=== PATIENT | male | born 1965 | race Caucasian/White ===

== ENCOUNTER 2019-06-09 11:54 | Observation (INO) ==
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
[2019-06-09] MEDS ORDERED: NS 1,000 ML IV ONE (12:06)
[2019-06-09 12:34] LABS: BASO# 0.01 X1000 (0.0-0.2); BASO% 0.2 % (0.0-0.8); EOS# 0.01 X1000 (0.0-0.7); EOS% 0.2 % (0.0-10.0); HEMATOCRIT 40.9 % (42.0-52.0); HEMOGLOBIN 14.3 g/dL (14.0-18.0); IMM GRAN# 0.02 X1000 (0.0-0.04); IMM GRAN% 0.4 % (0.0-0.5); LYMPH# 0.91 X1000 (1.2-3.4); LYMPH% 17.1 % (20.5-51.1); MCH 31.8 PG (27-31); MCV 90.9 FL (81-99); MONO% 7.5 % (1.7-9.3); MPV 8.6 FL (7.4-10.4); NEUT# 3.97 X1000 (1.4-6.5); NEUT% 74.6 % (42.2-75.2); PLT 208 X1000 (130-400); RDW 13.5 % (11.5-14.5); WBC 5.32 X1000 (4.8-10.8)
--- NOTE | 2019-06-09 12:54 | EKG Report ---
Test Performed on : 06/09/2019 12:36:30 PM Test Reason : syncope Blood Pressure : / mmHG Vent. Rate : 076 BPM Atrial Rate : 076 BPM P-R Int : 154 ms QRS Dur : 110 ms QT Int : 368 ms P-R-T Axes : 059 072 058 degrees QTc Int : 414 ms Normal sinus rhythm. Normal ECG No previous ECGs available Unconfirmed Result
[2019-06-09 13:02] LABS: ALBUMIN 4.3 g/dL (3.5-5.0); CALCIUM 8.6 mg/dL (8.8-10.2); CREATININE 1.6 mg/dL (0.7-1.2); POTASSIUM 4.1 mmol/L (3.5-5.1); TOTAL BILIRUBIN 0.22 mg/dL (0.20-1.00); TOTAL PROTEIN 6.4 g/dL (6.3-8.3)
[2019-06-09 13:20] LABS: CK INDEX 0.8 (0.0-2.5); CK-MB 2.61 ng/mL (0.0-5.0)
[2019-06-09 14:37] LABS: URINE SOURCE CLEAN CATCH
[2019-06-09 14:40] LABS: BILIRUBIN URINE NEGATIVE (NEGATIVE); BLOOD URINE SMALL (NEGATIVE); COLOR YELLOW; GLUCOSE URINE NEGATIVE (NEGATIVE); KETONE URINE TRACE mg/dL (NEGATIVE); LEUKOCYTES URINE NEGATIVE (NEGATIVE); NITRITE URINE NEGATIVE (NEGATIVE); PROTEIN URINE TRACE mg/dL (NEGATIVE); SP GRAVITY URINE 1.016; TURBIDITY URINE CLEAR (CLEAR); UROBILINOGEN URINE NORMAL (NORMAL)
[2019-06-09 14:42] LABS: UR EPITHELIAL CELLS <10 /HPF (<10); URINE BACTERIA NEGATIVE /HPF; URINE RBC <10 /HPF (<10)
[2019-06-09 14:52] LABS: UR AMPHETAMINES QUAL NONE DETECTED (NONE DETECT); UR BARBITUATES QUAL NONE DETECTED (NONE DETECT); UR BENZODIAZEPIN QUAL NONE DETECTED (NONE DETECT); UR CANNABINOIDS QUAL NONE DETECTED (NONE DETECT); UR COCAINE QUAL NONE DETECTED (NONE DETECT); UR METHADONE QUAL NONE DETECTED (NONE DETECT); UR OPIATES QUAL NONE DETECTED (NONE DETECT); UR OXYCODONE QUAL NONE DETECTED (NONE DETECT); UR PCP QUAL NONE DETECTED (NONE DETECT)
--- NOTE | 2019-06-09 14:56 | Diag Imaging Result Doc PS360 ---
EXAM: CT HEAD W/O CONTRAST 06/09/2019 HISTORY: syncope TECHNIQUE: This exam was performed using automated exposure control, adjustment of mA or kV according to patient size, and/or use of iterative reconstruction technique. COMMENT: There is no evidence of mass effect, bleed, or abnormal extra-axial fluid collection. The calvarium is intact. The visualized paranasal sinuses are clear. IMPRESSION: No evidence of acute disease. Electronically signed by John Del Toro 06/09/2019 2:53 PM
--- NOTE | 2019-06-09 15:01 | Diag Imaging Result Doc PS360 ---
EXAM: CHEST-1 VIEW 06/09/2019 HISTORY: syncope TECHNIQUE: AP upright at 1455 COMMENT: There is some questionable atelectasis in the costophrenic angle region of the right lower lobe which was not present on 02/22/2011. The heart size and pulmonary vascularity are within normal limits. IMPRESSION: Questionable right lower lobe atelectasis. Electronically signed by John Del Toro 06/09/2019 2:58 PM
[2019-06-09] MEDS ORDERED: TAMIFLU PO ONE (15:32)
[2019-06-09] MEDS ORDERED: ZOFRAN IV PRN (15:32)
[2019-06-09] MEDS ORDERED: TYLENOL PO PRN (15:32)
--- NOTE | 2019-06-09 16:13 | Diag Imaging Result Doc PS360 ---
EXAM: CT THORAX W/O CONTRAST 06/09/2019 HISTORY: r/o pna TECHNIQUE: This exam was performed using automated exposure control, adjustment of mA or kV according to patient size, and/or use of iterative reconstruction technique. COMMENT: There are no previous studies available for comparison. There is severe COPD. There are some calcifications and fibrotic appearing opacities in the right apex. There are patchy groundglass opacities in both upper lobes with some tree-in-bud opacity and mild peribronchial thickening. A similar appearance is present in the left lower lobe superior segment and in the right lower lobe around image 96. There is atelectasis or fibrosis in the costophrenic sulci particularly of the left lower lobe. There are some coronary calcifications. There are no abnormal fluid collections. There is some right paratracheal and aorticopulmonary window adenopathy with nodes approaching 15 mm. There is no evidence of acute disease in the visualized portion of the abdomen. The regional skeleton appears to be intact. IMPRESSION: Minimal pneumonitis and bronchiolitis. Electronically signed by John Del Toro 06/09/2019 4:10 PM
[2019-06-09] MEDS: SOLU-MEDROL IV SCH (17:33)
[2019-06-09] MEDS: NS 1,000 ML IV SCH (17:33)
[2019-06-09] MEDS: DUONEB (A & A) INH SCH ×2 (19:52→23:18)
[2019-06-09] MEDS: NICODERM PATCH TD SCH (20:56)
[2019-06-09 21:14] LABS: AGAP 14; BUN 31 mg/dL (8-22); CHLORIDE 91 mmol/L (98-107); COSMO 260; CREATININE 1.2 mg/dL (0.7-1.2); ESTIMATED GFR > 60; GLUCOSE 129 mg/dL (70-104); SODIUM 125 mmol/L (136-145); TCO2 20 mmol/L (25-35)
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
[2019-06-10] MEDS: DUONEB (A & A) INH SCH ×4 (01:09→11:20)
[2019-06-10] MEDS: SOLU-MEDROL IV SCH (05:30)
--- NOTE | 2019-06-10 07:22 | EKG Report ---
Test Performed on : 06/10/2019 07:08:26 AM Test Reason : chest pain Blood Pressure : / mmHG Vent. Rate : 091 BPM Atrial Rate : 091 BPM P-R Int : 140 ms QRS Dur : 108 ms QT Int : 360 ms P-R-T Axes : 072 080 071 degrees QTc Int : 442 ms Normal sinus rhythm. Normal ECG When compared with ECG of 09-JUN-2019 12:36, (Unconfirmed) No significant change was found Confirmed by Sarah Terry MD ([id number]) on 06/10/2019 4:15:21 PM
[2019-06-10] MEDS: NS 1,000 ML IV SCH (07:31)
[2019-06-10 08:00] LABS: HEMATOCRIT 37.6 % (42.0-52.0); LYMPH# 0.49 X1000 (1.2-3.4); LYMPH% 9.9 % (20.5-51.1); MCH 31.6 PG (27-31); MCHC 34.6 g/dL (33-37); MCV 91.3 FL (81-99); MONO# 0.32 X1000 (0.11-0.59); MONO% 6.5 % (1.7-9.3); MPV 8.9 FL (7.4-10.4); NEUT# 4.12 X1000 (1.4-6.5); NEUT% 83.6 % (42.2-75.2); PLT 209 X1000 (130-400); RBC 4.12 XMIL (4.7-6.1); RDW 13.5 % (11.5-14.5); WBC 4.93 X1000 (4.8-10.8)
[2019-06-10] MEDS: NICODERM PATCH TD SCH (08:18)
[2019-06-10 08:42] LABS: AGAP 14; ALB/GLOB RATIO 1.5; ALBUMIN 3.7 g/dL (3.5-5.0); ALKALINE PHOSPHATASE 58 U/L (32-122); BUN 19 mg/dL (8-22); CALCIUM 8.5 mg/dL (8.8-10.2); CHLORIDE 91 mmol/L (98-107); COSMO 259; CREATININE 0.9 mg/dL (0.7-1.2); ESTIMATED GFR > 60; GLUCOSE 123 mg/dL (70-104); GOT 38 U/L (10-34); GPT 35 U/L (10-44); MAGNESIUM 1.5 mg/dL (1.5-2.7); POTASSIUM 4.2 mmol/L (3.5-5.1); SODIUM 127 mmol/L (136-145); TCO2 22 mmol/L (25-35); TOTAL BILIRUBIN 0.17 mg/dL (0.20-1.00); TOTAL PROTEIN 6.2 g/dL (6.3-8.3)
[2019-06-10] MEDS ORDERED: TAMIFLU PO SCH (09:00)
[2019-06-10 11:45] VITALS: BP 123/51
[2019-06-10] MEDS ORDERED: LEVAQUIN PO SCH (13:30)
--- NOTE | 2019-06-12 13:12 | DISCHARGE SUMMARY ---
ADMISSION DATE: 06/09/2019 DISCHARGE DATE: 06/10/2019 DISCHARGE DIAGNOSES: 1. Influenza. 2. Dehydration. 3. Acute on chronic hyponatremia. 4. Chronic obstructive pulmonary disease with mild exacerbation. 5. Mild acute kidney injury. HOSPITAL COURSE: The patient presents initially with a 3-day history of fever, chills, myalgias, diarrhea, nausea, cough and dyspnea. On initial evaluation, no pneumonia was found, but patient was positive for influenza. He was mildly hypotensive with positive orthostatics, had a mildly elevated creatinine of 1.6 without clear baseline and with low sodium at 123. On discussion with the patient, he states that his sodium has been low for a long period of time, although he is not entirely certain how low it has been in the past. It was thought the patient likely had influenza and dehydration, so he was given Tamiflu and IV fluids. The patient improved rapidly. His acute kidney injury resolved. Creatinine was 0.9 on discharge. The patient's sodium improved slightly from 123 to 127, but never completely normalized. However, patient's hypotension resolved and the patient was no longer orthostatic. The patient was also noted to have some moderately decreased breath sounds throughout and mild wheezing on admission, was thought to have a mild chronic obstructive pulmonary disease exacerbation. Patient with a strong smoking history. CT of his chest confirmed severe COPD and showed bronchitis without angelica pneumonia. CT was obtained and he was also put on Levaquin to treat the bronchitis which was likely due to influenza, but a bacterial component could not be completely ruled out. The patient was not aware that he had COPD, but when his med list was reviewed, he was on albuterol inhaler and Dulera inhaler, although he did not appear to be using them correctly. He was using both inhalers as needed and stated that he rarely used the Dulera because using it acutely did not help much. The patient was educated as to the difference between rescue and maintenance inhalers and expressed understanding. On the day of discharge, patient's wheezing was resolved. He was no longer having any orthostatic hypotension or dizziness, and he strongly desired discharge home. As patient's blood pressure was essentially in the normal range, it was recommended that he stay off of his home blood pressure medications at least for the short term; that is his lisinopril and/or hydralazine. May need to be started in the future if his blood pressure continues to trend up as he states that it has in the past. I am going to recommend the patient probably stay off of hydrochlorothiazide given his chronic hyponatremia. The patient also endorsed drinking a large number of Mountain Dews every day. Counseled patient that once his acute illness was resolved to exercise restraint with his amount of Mountain Dew ingestion, both from a sodium standpoint with his history of hypertension and from the standpoint of a large amount of fluid to be taking it for someone with chronic low sodium issues. Recommend the patient follow up with his PCP in a week to recheck blood pressure, possibly reinstitute some of his blood pressure medications and likely recheck his sodium. If his sodium remains low, than true fluid restriction would likely be justified in the future. DISCHARGE VITALS: Temperature 99.0 degrees, pulse 78, respirations 16, blood pressure 117/68, O2 saturation 96% on room air. DISCHARGE DIET: Low salt. DISCHARGE MEDICATIONS: 1. Albuterol inhaler q. 4 hours as needed. 2. Dulera inhaler 2 puffs inhaled b.i.d. 3. Levaquin 750 mg p.o. daily for an additional 5 days. 4. Medrol Dosepak as directed. 5. Nicotine patch 21 mg daily. 6. Tamiflu 75 mg p.o. b.i.d. to finish 5-day course. FOLLOW UP AND PLAN: The patient discharging home on a short course of Levaquin for bronchitis that may be bacterial, but could not rule out bacterial component. Medrol Dosepak for mild chronic obstructive pulmonary disease exacerbation. The patient educated on the role of maintenance inhalers. Strongly counseled to discontinue smoking. Also, given Tamiflu to finish course of treatment for influenza. Patient to follow up with PCP for re-evaluation of blood pressure and sodium. Recommend he stay off hydrochlorothiazide as it could be contributing to his hyponatremia.
== END 2019-06-10 15:24 | disposition home or self-care (01) ==
LOC: SUPCPDRO → ED 11:54 → EDIPHOLD 11:55 → INTOOBSV 11:55 → 3N 17:18
PROVIDERS: ATTEND Internal Medicine